=== PATIENT | male | born 1955 | race Caucasian/White ===

== ENCOUNTER 2019-02-17 17:54 | Emergency (ER) | payer BC ==
--- NOTE | 2019-02-17 18:06 | ER Document Report ---
ED Medical Screen (RME) - General Chief Complaint: Leg Pain Stated Complaint: POST OP PROBLEM Time Seen by Provider: 02/17/19 18:03 Primary Care Provider: EMILY HAJI [Primary Care Provider] - Follow up as needed Mode of Arrival: Wheelchair Information source: Patient Notes: 63-year-old male presented to ED for complaint of pain and swelling to the right knee. He states he had a knee operation on January 31 and emergent arthroscopic knee surgery. He states over the weekend his knee started increasing in pain and swelling and now he is not able to walk on his leg due to the pain. The right knee is bigger than the left knee. They called [facility] and they sent him to the emergency room.. I have greeted and performed a rapid initial assessment of this patient. A comprehensive ED assessment and evaluation of the patient, analysis of test results and completion of medical decision making process will be conducted by an additional ED providers. Doctor's Discharge - Discharge Referrals: EMILY HAJI [Primary Care Provider] - Follow up as needed
[2019-02-17 18:48] LABS: ABSOLUTE BASOPHILS # (AUTO) 0.1 10^3/uL (0.0-0.2); ABSOLUTE EOSINOPHILS # (AUTO) 0.2 10^3/uL (0.0-0.6); ABSOLUTE LYMPHOCYTES (AUTO) 2.8 10^3/uL (0.5-4.7); ABSOLUTE MONOCYTES (AUTO) 0.7 10^3/uL (0.1-1.4); ABSOLUTE NEUT (AUTO) 4.8 10^3/uL (1.7-8.2); BASOPHILS % (AUTO) 0.7 % (0-2); HEMATOCRIT 43.2 % (37.9-51.0); LYMPHOCYTES % (AUTO) 33.1 % (13-45); MEAN CORPUSCULAR HEMOGLOBIN 29.8 pg (27.0-33.4); MEAN CORPUSCULAR HGB CONC 34.7 g/dL (32.0-36.0); MEAN CORPUSCULAR VOLUME 86 fl (80-97); MONOCYTES % (AUTO) 7.6 % (3-13); PLATELET COUNT 163 10^3/uL (150-450); RED BLOOD COUNT 5.03 10^6/uL (4.35-5.55); RED CELL DISTRIBUTION WIDTH 13.9 % (11.5-14.0); SEGMENTED NEUTROPHILS % (AUTO) 56.6 % (42-78); TOTAL CELLS COUNTED % (AUTO) 100 %; WHITE BLOOD COUNT 8.5 10^3/uL (4.0-10.5)
[2019-02-17 18:58] LABS: INTERNATIONAL RATION (INR) 1.02; PROTHROMBIN TIME 13.4 SEC (11.4-15.4)
[2019-02-17 18:59] LABS: PARTIAL THROMBOPLASTIN TIME 26.5 SEC (23.5-35.8)
--- NOTE | 2019-02-17 19:01 | RADIOLOGY REPORT (SQ) ---
EXAM DESCRIPTION: KNEE RIGHT 4 VIEWS COMPLETED DATE/TIME: 02/17/2019 6:47 pm REASON FOR STUDY: post op pain knee and calf pain COMPARISON: None. NUMBER OF VIEWS: Four views. TECHNIQUE: AP, lateral, and both oblique radiographic images acquired of the right knee. LIMITATIONS: None. FINDINGS: MINERALIZATION: Normal. BONES: No acute fracture or dislocation. No worrisome bone lesions. JOINT: Effusion. SOFT TISSUES: No soft tissue swelling. No radio-opaque foreign body. OTHER: No other significant finding. IMPRESSION: Joint effusion. No acute osseus abnormality. TECHNICAL DOCUMENTATION: JOB ID: [id number] [employer]- All Rights Reserved Reading location - IP/workstation name: [email or web address]
[2019-02-17 19:10] LABS: ALKALINE PHOSPHATASE 108 U/L (38-126); ANION GAP 12 (5-19); ASPARTATE AMINO TRANSFERASE 50 U/L (17-59); BILIRUBIN,DIRECT 0.1 mg/dL (0.0-0.4); BILIRUBIN,TOTAL 0.9 mg/dL (0.2-1.3); BLOOD UREA NITROGEN 17 mg/dL (7-20); CALCIUM 10.2 mg/dL (8.4-10.2); CARBON DIOXIDE 28 mmol/L (22-30); CHLORIDE 99 mmol/L (98-107); GLUCOSE 102 mg/dL (75-110); POTASSIUM 3.5 mmol/L (3.6-5.0); TOTAL PROTEIN 8.1 g/dL (6.3-8.2)
--- NOTE | 2019-02-17 19:35 | ER Document Report ---
ED General - General Chief Complaint: Knee Pain Stated Complaint: POST OP PROBLEM Time Seen by Provider: 02/17/19 18:03 Primary Care Provider: EMILY HAJI [NO LOCAL MD] - Follow up as needed Mode of Arrival: Wheelchair TRAVEL OUTSIDE OF THE [place] IN LAST 30 DAYS: No - HPI Notes: Patient is a 63-year-old male with a history of diabetes and hypertension who presents complaining of right knee pain and swelling over the past couple days without precipitating event or injury. Patient states that he did have surgery performed on that knee on January 31. Patient had an arthroscopic procedure to remove/shave a piece of the bone. Patient states that after the surgery he was doing really well and has not been having any complications. Pain started devel oping this weekend. He has noticed a decrease in range of motion due to the swelling. Patient states that weightbearing does make the pain worse. Denies drug allergies. No history of IV drug abuse or gout. He had surgery with [facility] in [place]. Denies any headache, fever, neck pain, URI, sore throat, chest pain, palpitations, syncope, cough, shortness of breath, wheeze, dyspnea, abdominal pain, nausea/vomiting/diarrhea, urinary retention, dysuria, hematuria, loss of control of bowel or bladder, numbness/tingling, saddle anesthesia, muscle paralysis/weakness, or rash. - Related Data Home Medications: pt will provide a list later he cannot recall right now Past Medical History - General Information source: Patient - Social History Smoking Status: Never Smoker Frequency of alcohol use: Social Family History: Reviewed & Not Pertinent Patient has suicidal ideation: No Patient has homicidal ideation: No Endocrine Medical History: Reports: Hx Diabetes Mellitus Type 2 Review of Systems - Review of Systems -: Yes All other systems reviewed and negative Physical Exam - Vital signs Vitals: Temp Pulse Resp BP Pulse Ox 98.1 F 87 17 160/79 H 95 02/17/19 18:01 02/17/19 18:01 02/17/19 18:01 02/17/19 18:01 02/17/19 18:01 - Notes Notes: PHYSICAL EXAMINATION: GENERAL: Well-appearing, well-nourished and in no acute distress. LUNGS: Breath sounds clear to auscultation bilaterally and equal. No wheezes rales or rhonchi. HEART: Regular rate and rhythm without murmurs, rubs, gallops. Musculoskeletal: Rt knee: + effusion and swelling noted. Healing laparoscopic incisions noted w/o any erythema, abscess, streaks, or discharge. The knee is mildly warmer than the left. No significant erythema to the global knee otherwise. LROM to passive/active to flexion mostly due to swelling. Strength 5+/5. N/V intact distal. + mild anterior bony tenderness. No calf tenderness. + mild posterior knee tenderness. Extremities: No cyanosis, clubbing, or edema b/l. Peripheral pulses 2+. Capillary refill less than 3 seconds. Nora neg b/l. NEUROLOGICAL: Normal speech, limping gait. Normal sensory, motor exams PSYCH: Normal mood, normal affect. SKIN: Warm, Dry, normal turgor, no rashes or lesions noted. Course - Re-evaluation Re-evalutation: 02/17/19 21:05 I was able to speak with Dr. Webb (@[id number]: [facility] who performed his s urgery) and he recommends f/u in his office in [place] on Sunday. He may call his office to schedule, but no further work up warranted at this time. Patient is an afebrile, well-hydrated, 63-year-old male who presents to the ED with Rt knee pain and nonspecific effusion. Vitals are acceptable without any significant tachycardia, tachypnea, or hypoxia. PE is otherwise unremarkable for any neurovascular compromise, obvious tendon/ligament rupture, obvious fracture/dislocation, septic joint. See XR. CBC, CMP, ESR, and CRP unremarkable. Knee immobilizer provided. Pt has walker at home. Patient is nontoxic-appearing. Patient is able to ambulate and weight-bear although he is limping. No other labs or imaging warranted at this time based on H&P. Conservative measures otherwise for symptoms. Recheck with your PCM in 3-5 days. Consider consult orthopedics. Return to the ED with any worsening/concerning symptoms otherwise as reviewed in discharge. Patient is in agreement. - Vital Signs Vital signs: Temp Pulse Resp BP Pulse Ox 98.1 F 87 17 160/79 H 95 02/17/19 18:01 02/17/19 18:01 02/17/19 18:01 02/17/19 18:01 02/17/19 18:01 - Laboratory Result Diagrams: 02/17/19 18:35 02/17/19 18:35 Laboratory results interpreted by me: 02/17/19 18:35 Potassium 3.5 L Discharge - Discharge Clinical Impression: Effusion, right knee Condition: Stable Disposition: HOME, SELF-CARE Instructions: Ice & Elevation ([facility]) Additional Instructions: Rest, Ice, Compression, Elevation Use crutches or walker/splint as directed Tylenol/ibuprofen as needed F/u with your PCP as needed Call orthopedics, Dr. Webb's office, tomorrow to schedule an appointment for further evaluation and management--he would like to see you in the [place] office on Sunday* Return to the ED with any worsening symptoms and/or development of fever, headache, chest pain, palpitations, syncope, shortness of breath, trouble breathing, abdominal pain, n/v/d, muscle weakness/paralysis, numbness/tingling, swelling, redness, or other worsening symptoms that are concerning to you. Prescriptions: Hydrocodone/Acetaminophen [[place] 5-325 mg Tablet] 1 tab PO TID #10 tablet Forms: Elevated Blood Pressure Referrals: Dr. Tracey [Other] - 02/19/19
[2019-02-17 21:46] VITALS: BP 129/76
--- NOTE | 2019-02-18 09:34 | XCELERA REPORT ---
[address] [place] [facility] [address] Lower Extremity Venous Evaluation Procedure: Color flow and duplex imaging of the veins of the right lower extremity as well as the left Common Femoral vein. Right Sided Venous Evaluation Normal vessel filling wall to wall, compression and augmentation as well as Colour flow down to the infrageniculate veins. Left Sided Venous Evaluation The left common femoral vein is fully compressible. Spontaneous and phasic flow is present in the left common femoral vein. Interpretation Summary No duplex evidence of DVT or obstruction in the right lower extremity nor in the left Common Femoral vein. Name: NEVILLE BARBOZA Age: 63 yrs Gender: Male : 1955 Patient Status: Emergency Patient Location: ER Study Date: 02/17/2019 06:37 PM Reason For Study: post op RLE pain knee surgery calf pain Ordering Physician: ZEB GAVIN Performed By: Fabiana Valles : ZEB GAVIN > Max Santizo
== END 2019-02-17 22:19 | disposition home or self-care (01) ==
LOC: ER 17:54
DX: M25.461 Effusion, right knee (principal); M25.561 Pain in right knee; E11.9 Type 2 diabetes mellitus without complications; I10 Essential (primary) hypertension; Z98.890 Other specified postprocedural states
CPT/HCPCS: 36415; 85025; 85652; 85610; 85730; 86140; 80053; 93971 ×2; 73564; L1830; 99284